=== PATIENT | female | born 1930 ===

== ENCOUNTER 2017-04-14 13:33 | Emergency (ER) | payer MEDICARE, MEDICAID ==
[2017-04-14 13:43] VITALS: BP 160/83; PULSE 79; RESP 16; TEMP 99.5; O2SAT 97
[2017-04-14] MEDS ORDERED: Morphine 4 MG/ML VIAL IVP STA (15:12)
--- NOTE | 2017-04-14 15:16 | ED PDOC ---
Lower Extremity Pain/Injury Time Seen by Provider: 04/14/17 15:13 Chief Complaint (Nursing): Lower Extremity Problem/Injury Chief Complaint (Provider): bilateral leg pain History Per: Patient (86 y/o female h/o CVA with left sided weakness here with increasing pain in bilateral leg left>right. Notes lower back pain and pain in left knee/legt with swelling noted in leg. No falls noted.) Past Medical History Reviewed: Historical Data, Nursing Documentation, Vital Signs Vital Signs: Last Vital Signs Temp 99.5 F 04/14/17 13:38 Pulse 79 04/14/17 13:38 Resp 16 04/14/17 13:38 BP 160/83 H 04/14/17 13:38 Pulse Ox 97 04/14/17 13:38 - Medical History PMH: CVA, Diabetes, HTN, Hypercholesterolemia, TIA - Family History Family History: States: Unknown Family Hx - Home Medications Home Medications: Ambulatory Orders Medication Instructions Recorded traMADol [Ultram] 50 mg PO Q8 PRN #10 tab 04/14/17 - Allergies Allergies/Adverse Reactions: Allergies Allergy/AdvReac Type Severity Reaction Status Date / Time No Known Allergies Allergy Verified 04/14/17 13:38 Review of Systems ROS Statement: Except As Marked, All Systems Reviewed And Found Negative Musculoskeletal: Positive for: Leg Pain Physical Exam - Reviewed Nursing Documentation Reviewed: Yes Vital Signs Reviewed: Yes - Physical Exam Appears: Positive for: Well, Non-toxic, No Acute Distress Head Exam: Positive for: ATRAUMATIC, NORMAL INSPECTION, NORMOCEPHALIC Skin: Positive for: Normal Color, Warm, DRY Eye Exam: Positive for: EOMI, Normal appearance, PERRL ENT: Positive for: Normal ENT Inspection Neck: Positive for: Normal, Painless ROM Cardiovascular/Chest: Positive for: Regular Rate, Rhythm Respiratory: Positive for: CNT, Normal Breath Sounds Gastrointestinal/Abdominal: Positive for: Normal Exam, Bowel Sounds, Soft Back: Positive for: Normal Inspection, Vertebral Tenderness (bilateral paralumbar tenderness noted.) Extremity: Positive for: Normal ROM, Tenderness (tender left knee anterior. NO effusion noted. Able to bend but with pain.), Swelling (left calf swelling/ tenderness.), Other ((+)back pain with lift of left leg) Neurologic/Psych: Positive for: Alert, Oriented - Laboratory Results Result Diagrams: 04/14/17 15:40 04/14/17 15:40 - ECG O2 Sat by Pulse Oximetry: 97 - Progress ED Course And Treament: us BILATERAL: NO DVT KNEE XRY: OSTEOPENIA; OSTEOPARESIS XRY OF L SPINE: NO ACUTE FX MORPHINE 1 MG IV ZOFRAN 4MG IV Disposition - Clinical Impression Clinical Impression: Back pain, Knee pain, Leg pain - Patient ED Disposition Is Patient to be Admitted: No - Disposition Disposition: Routine/Home Disposition Time: 17:01 Condition: FAIR Prescriptions: traMADol [Ultram] 50 mg PO Q8 PRN #10 tab PRN Reason: Pain, Severe (8-10) Instructions: Low Back Pain (DC), Knee Pain Forms: [email or web address] (Persian)
[2017-04-14] MEDS ORDERED: Morphine 4 MG/ML VIAL ONE (15:41)
[2017-04-14 16:00] LABS: BASO # 0.1 K/uL (0.0-0.2); BASO % 1.4 % (0.0-2.0); EOS # 0.1 K/uL (0.0-0.7); EOS % 1.9 % (0.0-4.0); HEMOGLOBIN 11.4 g/dL (12.0-16.0); LYMPH % 16.8 % (20.0-40.0); MEAN CELL VOLUME 96.3 fl (81.0-99.0); MEAN CORPUSCULAR HEMOGLOBIN 31.9 pg (27.0-31.0); MEAN CORPUSCULAR HGB CONC 33.1 g/dL (33.0-37.0); MEAN PLATELET VOLUME 9.4 fl (7.2-11.7); MONO # 0.8 K/uL (0.0-0.8); MONO % 13.7 % (0.0-10.0); NEUT % 66.2 % (50.0-75.0); NRBC % 0.1 % (0.0-0.0); RBC 3.57 Mil/uL (3.80-5.20)
[2017-04-14 16:04] LABS: CALCIUM 9.5 mg/dL (8.4-10.2); GFR AFRICAN-AMERICAN > 60; GFR NON-AFRICAN AMERICAN > 60
--- NOTE | 2017-04-14 16:07 | RAD ---
PROCEDURE: Left Knee Radiographs. HISTORY: Pain. COMPARISON: None. FINDINGS: BONES: No acute fracture or destructive bony lesion identified. Diffuse osteopenia suggests osteoporosis. JOINTS: Joint space narrowing at the medial and patellofemoral compartments is compatible with degenerative joint disease. JOINT EFFUSION: None. OTHER FINDINGS: Vascular calcifications are identified in the posterior knee, distal thigh and proximal leg soft tissues. IMPRESSION: No acute fracture or dislocation. Diffuse osteopenia suggests osteoporosis. Degenerative changes as discussed above.
[2017-04-14 16:12] LABS: BLOOD UREA NITROGEN 24 mg/dl (7-17); MAGNESIUM 1.8 MG/DL (1.6-2.3)
--- NOTE | 2017-04-14 16:40 | US ---
PROCEDURE: Bilateral lower extremity venous duplex Doppler. HISTORY: r/o dvt COMPARISON: None available. TECHNIQUE: Bilateral common femoral, superficial femoral, popliteal and posterior tibial veins were evaluated. Flow was assessed with color Doppler, compressibility, assessment of phasic flow and augmentation response. FINDINGS: COMMON FEMORAL VEIN: Right CFV: Unremarkable. Left CFV: Unremarkable. SUPERFICIAL FEMORAL VEIN: Right SFV: Unremarkable. Left SFV: Unremarkable. POPLITEAL VEIN: Right Popliteal: Unremarkable. Left Popliteal: Unremarkable. POSTERIOR TIBIAL VEIN: Right PTV: Unremarkable. Left PTV: Unremarkable. OTHER FINDINGS: None. IMPRESSION: No evidence of deep venous thrombosis of lower extremities.
[2017-04-14 16:43] LABS: INR 1.2 (0.9-1.2)
[2017-04-14 16:44] LABS: PARTIAL THROMBOPLASTIN TIME 61.8 Seconds (25.6-37.1)
--- NOTE | 2017-04-14 22:22 | RAD ---
PROCEDURE: Radiographs of the Lumbar Spine. HISTORY: r/o fx COMPARISON: No prior. FINDINGS: BONES: A mild to moderate anterior wedge compression fracture of T12 is appreciated with no lumbar compression fracture identified. A limited grade 1 spondylolisthesis appreciated at L1-2 with L1 minimally posterior L2. Mild disc height loss also identified L1-2 with remaining intervertebral disc heights appearing normal. No demonstrated destructive bony lesion appreciable. Moderate multilevel lumbar spinal stenosis appreciated concentrated at the upper lumbar spine somewhat more advanced at the visualized inferior thoracic spine. DISC SPACES: As above OTHER FINDINGS: None. IMPRESSION: A mild chronic compression fracture is incidentally noted T12 with limited spondylolisthesis appearing at L1-2, grade 1. Multilevel lumbar spondylosis. Further characterization can provided by MRI if clinically warranted.
== END 2017-04-14 18:03 | disposition home or self-care (01) ==
LOC: H.ER 13:33
DX: M54.9 Dorsalgia, unspecified (principal); M25.562 Pain in left knee; E11.9 Type 2 diabetes mellitus without complications; E78.00 Pure hypercholesterolemia, unspecified; I69.354 Hemiplegia and hemiparesis following cerebral infarction affecting left non-dominant side